=== PATIENT | female | born 1985 | race Caucasian/White ===

== ENCOUNTER 2022-04-02 15:55 | Outpatient (CLI) | payer OTHER, SELFPAY | END 2022-04-02 15:56 | disposition home or self-care (01) | PROVIDERS: PCP Physician Assistant Medical; Visit Provider Physician Assistant Medical | DX: I10 Essential (primary) hypertension (principal) | CPT/HCPCS: 84443 ==

== ENCOUNTER 2023-03-21 08:48 | Outpatient (CLI) | payer OTHER, SELFPAY | END 2023-03-21 08:49 | disposition home or self-care (01) | LOC: NFLDREF 03-25 07:29 | PROVIDERS: PCP Physician Assistant Medical; Referring Provider Physician Assistant Medical; Visit Provider Physician Assistant Medical | DX: Z00.00 Encounter for general adult medical examination without abnormal findings (principal); I10 Essential (primary) hypertension; Z13.6 Encounter for screening for cardiovascular disorders; Z13.1 Encounter for screening for diabetes mellitus; Z13.0 Encounter for screening for diseases of the blood and blood-forming organs and certain disorders involving the immune mechanism; Z13.29 Encounter for screening for other suspected endocrine disorder | CPT/HCPCS: 80053; 80061; 84443 ==

== ENCOUNTER 2024-06-01 09:25 | Outpatient (CLI) | payer OTHER, SELFPAY | END 2024-06-01 09:26 | disposition home or self-care (01) | LOC: NFLDREF 16:56 | PROVIDERS: PCP Physician Assistant Medical; Referring Provider Physician Assistant Medical; Visit Provider Physician Assistant Medical | DX: I10 Essential (primary) hypertension (principal); R82.90 Unspecified abnormal findings in urine; Z13.1 Encounter for screening for diabetes mellitus; Z13.6 Encounter for screening for cardiovascular disorders; Z13.29 Encounter for screening for other suspected endocrine disorder | CPT/HCPCS: 80048; 80061; 84443; 87086 ==

== ENCOUNTER 2024-06-22 07:30 | Outpatient (CLI) | payer OTHER, SELFPAY ==
--- NOTE | 2024-06-22 07:45 | CRLHL7_ITS ---
For Patients: As a result of the Century Cures Act, medical imaging exams and procedure reports are released immediately into your electronic medical record. You may view this report before your referring provider. If you have questions, please contact your health care provider. DIGITIAL DIAGNOSTIC BILATERAL MAMMOGRAM WITH COMPUTER-AIDED DETECTION AND TOMOSYNTHESIS, 06/22/2024 CLINICAL HISTORY: RIGHT breast lump. COMPARISON: None. TECHNIQUE: Digital BILATERAL mammogram in 4 projections with computer-aided detection. Tomosynthesis was used in this interpretation. Real-time ultrasound imaging of RIGHT breast with imaging documentation. BREAST COMPOSITION: There are scattered areas of fibroglandular density. FINDINGS: 3D cc/MLO bilateral mammogram images submitted. No suspicious mass or architectural distortion. No adenopathy or suspicious calcifications. Targeted RIGHT breast ultrasound performed in the area of concern at 7 o`clock 5 cm from the nipple. Normal fibroglandular tissue is present. No fibrocystic change or mass. IMPRESSION: No suspicious findings. No evidence of malignancy. RECOMMENDATIONS: Clinical follow-up and age-appropriate screening mammography. A lay language report of this examination will be provided to the patient. BI-RADS Category 2. Benign Dictated by Ketan Lopez MD @ 06/22/2024 8:41:55 AM VIOLETA/zack DW/Dictated by: Ketan Lopez MD @ 06/22/2024 8:41:00 AM (Electronically Signed)
--- NOTE | 2024-06-22 08:15 | CRLHL7_ITS ---
For Patients: As a result of the Century Cures Act, medical imaging exams and procedure reports are released immediately into your electronic medical record. You may view this report before your referring provider. If you have questions, please contact your health care provider. Please see digital diagnostic BILATERAL mammogram done the same day for combined report. DM:zack 06/22/2024 DW/Dictated by: Ketan Lopez MD @ 06/22/2024 8:42:00 AM (Electronically Signed)
== END 2024-06-22 07:31 | disposition home or self-care (01) ==
PROVIDERS: PCP Physician Assistant Medical; Visit Provider Physician Assistant Medical
DX: N63.10 Unspecified lump in the right breast, unspecified quadrant (principal)
CPT/HCPCS: 76642; 77066; G0279

== ENCOUNTER 2024-11-26 08:02 | Outpatient (CLI) | payer OTHER, SELFPAY | END 2024-11-26 08:03 | disposition home or self-care (01) | LOC: NFLDREF 11-30 13:53 | PROVIDERS: PCP Physician Assistant Medical; Referring Provider Physician Assistant Medical; Visit Provider Physician Assistant Medical | DX: I10 Essential (primary) hypertension (principal) | CPT/HCPCS: 80048 ==